=== PATIENT | male | born 1980 | race Hispanic/Latino ===

== ENCOUNTER 2019-04-16 11:32 | Emergency (ER) | payer SELFPAY ==
[2019-04-16 11:44] LABS: Absolute Lymphocytes (CBC) 1.3 K/uL (0.7-4.9); Basophils % 0.2 % (0-1.3); Hematocrit 45.4 % (39.6-49.0); Lymphocytes % 8.5 % (15.3-44.8); MPV 9.4 fL (7.6-11.3); RBC Red Blood Cell Count 5.47 M/uL (4.33-5.43)
--- NOTE | 2019-04-16 11:49 | RAD REPORT ---
EXAM DESCRIPTION: CT - Ct Stroke Brain Wo Cont - 04/16/2019 11:40 am CLINICAL HISTORY: Unresponsive, history of loss of consciousness, history of stroke, possible MS his tory COMPARISON: None. TECHNIQUE: Axial 5 millimeter thick images of the head were obtained without IV contrast. All CT scans are performed using dose optimization technique as appropriate and may include automated exposure control or mA/KV adjustment according to patient size. FINDINGS: No intracranial hemorrhage, mass, or cerebral edema. No acute infarction identifiable. No extra-axial fluid collections. Davey matter-white matter differentiation is preserved. Ventricles are normal. Visualized portions of the mastoid air cells, paranasal sinuses, and orbits are unremarkable. Findings telephoned to the referring clinician 11:44 a.m. IMPRESSION: No CT evidence of acute intracranial process. Ongoing concerns for acute nonhemorrhagic CVA can be addressed with MR imaging.
[2019-04-16 12:03] LABS: BUN Blood Urea Nitrogen 16 mg/dL (7-18); Bicarbonate 26 mmol/L (21-32); Creatine Phosphokinase 49 U/L (39-308); Glucose Level 150 mg/dL (74-106); Lipase 66 U/L (73-393); Magnesium 2.4 mg/dL (1.8-2.4); Potassium 3.8 mmol/L (3.5-5.1); Sodium Level 140 mmol/L (136-145); Troponin (Emerg Dept Use Only) < 0.02 ng/mL (0.0-0.045)
--- NOTE | 2019-04-16 12:13 | RAD REPORT ---
EXAM DESCRIPTION: MRI - Brain Wo Cont - 04/16/2019 12:01 pm CLINICAL HISTORY: TIA Headache, drowsiness COMPARISON: Ct Stroke Brain Wo Cont dated 04/16/2019 TECHNIQUE: Multi-sequence, multiplanar MR imaging of the brain was performed without contrast. FINDINGS: No intracranial hemorrhage, hydrocephalus or extra-axial fluid collections.Areas of T2 and FLAIR hyperintensity are seen in the periventricular white matter, unusual for age. No edema or shif t of midline structures. No findings to suspect brain mass. DWI is negative for acute CVA. Midline structures are normally formed. Mastoid air cells and paranasal sinuses are clear. IMPRESSION: Negative for acute CVA or other acute intracranial abnormality. Areas of mild T2 and FLAIR hyperintensity in the periventricular region are greater than typically se en in this age group. Consider the possibility of underlying demyelinating process or CADASIL.
[2019-04-16] MEDS ORDERED: ASPIRIN 81 MG CHEWABLE TABLET ONE (12:23)
[2019-04-16] MEDS ORDERED: NA CHLORIDE 0.9% 1,000 ML ONE (12:24)
[2019-04-16] MEDS ORDERED: METOCLOPRAMIDE 10 MG/2mL INJ ONE (12:24)
[2019-04-16] MEDS ORDERED: DIPHENHYDRAMINE 50 MG/ML VIAL ONE (12:24)
[2019-04-16] MEDS ORDERED: NA CHLORIDE 0.9% 50 ML IV ONE (12:24)
--- NOTE | 2019-04-16 12:48 | RAD REPORT ---
EXAM DESCRIPTION: RAD - Chest Single View - 04/16/2019 12:38 pm CLINICAL HISTORY: CHEST PAIN Chest pain. COMPARISON: Chest Single View dated 09/21/2018; Chest Pa And Lat (2 Views) dated 03/26/2018; Chest Pa And Lat (2 Views) dated 06/04/2017; Chest Pa And Lat (2 Views) dated 07/04/2016No comparisons FINDINGS: Portable technique limits examination quality. The lungs are grossly clear. The heart is normal in size. No displaced fractures. IMPRESSION: No acute intrathoracic process suspected.
--- NOTE | 2019-04-16 13:33 | EDPHYS ---
Physician Documentation [facility] Name: Panda Woodruff Age: 38 yrs Sex: Male : 1980 Arrival Date: 04/16/2019 Time: 11:32 Bed 3 Private MD: ED Physician Gus Arrington HPI: 04/16 13:25 This 38 yrs old Male presents to ER via Other with complaints of Unresponsive. jr8 13:25 Onset: The symptoms/episode began/occurred acutely, today. Duration: This was a single jr8 incident. Context: the episode(s) was witnessed, by a friend. The symptoms are alleviated by nothing. The symptoms are aggravated by nothing. Associated signs and symptoms: Pertinent positives: dizziness, headache, numbness. Severity of symptoms: At their worst the symptoms were moderate in the emergency department the symptoms have improved mildly. Patient's baseline: Neuro: alert and fully oriented, Motor: no deficits, Ambulation: walks without assistance, Speech: normal. The patient has experienced a previous episode. The patient has not recently seen a physician. Patient stated that he was on a boat fishing. Approximately at 9:30 started to sweat and become nauseated. Stated that he vomited once. Started to have left face and arm numbness. Had syncopal episode. [employer] was called at that time [place] Patient arrived to ED alert and oriented to person, place, time, event . Historical: - Allergies: 11:48 No Known Allergies; ph - Immunization history:: Adult Immunizations unknown. - Ebola Screening: : No symptoms or risks identified at this time. - Social history:: Smoking status: . ROS: 13:25 Eyes: Negative for injury, pain, redness, and discharge, ENT: Negative for injury, jr8 pain, and discharge, Neck: Negative for injury, pain, and swelling, Cardiovascular: Negative for chest pain, palpitations, and edema, Respiratory: Negative for shortness of breath, cough, wheezing, and pleuritic chest pain, Back: Negative for injury and pain, MS/Extremity: Negative for injury and deformity, Skin: Negative for injury, rash, and discoloration. 13:25 Abdomen/GI: Positive for nausea and vomiting, Negative for abdominal pain, diarrhea, constipation, abdominal cramps, abdominal distension. 13:25 Neuro: Positive for dizziness, headache, numbness, syncope, visual changes. Exam: 13:25 Radiologist reports: no acute findings jr8 13:25 Head/Face: Normocephalic, atraumatic. Eyes: Pupils equal round and reactive to light, extra-ocular motions intact. Lids and lashes normal. Conjunctiva and sclera are non-icteric and not injected. Cornea within normal limits. Periorbital areas with no swelling, redness, or edema. ENT: Nares patent. No nasal discharge, no septal abnormalities noted. Tympanic membranes are normal and external auditory canals are clear. Oropharynx with no redness, swelling, or masses, exudates, or evidence of obstruction, uvula midline. Mucous membranes moist. Neck: Trachea midline, no thyromegaly or masses palpated, and no cervical lymphadenopathy. Supple, full range of motion without nuchal rigidity, or vertebral point tenderness. No Meningismus. Cardiovascular: Regular rate and rhythm with a normal S1 and S2. No gallops, murmurs, or rubs. Normal PMI, no JVD. No pulse deficits. Respiratory: Lungs have equal breath sounds bilaterally, clear to auscultation and percussion. No rales, rhonchi or wheezes noted. No increased work of breathing, no retractions or nasal flaring. Abdomen/GI: Soft, non-tender, with normal bowel sounds. No distension or tympany. No guarding or rebound. No evidence of tenderness throughout. Back: No spinal tenderness. No costovertebral tenderness. Full range of motion. Skin: Warm, dry with normal turgor. Normal color with no rashes, no lesions, and no evidence of cellulitis. MS/ Extremity: Pulses equal, no cyanosis. Neurovascular intact. Full, normal range of motion. 13:25 Neuro: Orientation: to person, place, time \T\ situation. Mentation: is normal, Memory: is normal, immediate memory is intact, recent memory is intact, remote memory is intact, Cranial nerves: CN I not tested, CN II- XII are normal as tested, visual alexandre are intact. extraocular movements are intact, Facial palsy and sensory deficits are absent. Nystagmus is absent. Speech is clear and appropriate. Cerebellar function: is grossly normal, Motor: moves all fours, Sensation: numbness, that is mild, of the face and left arm, Gait: not tested. seizure activity, is not displayed by the patient, Abnormal movements: there are no abnormal movements. Vital Signs: 11:35 BP 118 / 88; Pulse 82; Resp 16; Temp 98.6(O); Pulse Ox 100% on R/A; ph 12:25 BP 114 / 80; Pulse 81; Resp 15 S; Pulse Ox 98% on R/A; jl7 13:30 BP 117 / 78; Pulse 81; Resp 16; Temp 97.8; Pulse Ox 99% on R/A; ph NIH Stroke Scale Scores: 11:40 NIHSS Score: 1 ph 13:25 NIHSS Score: 1 jr8 MDM: 11:33 Patient medically screened. jr8 13:25 Data reviewed: vital signs, nurses notes, lab test result(s), EKG, radiologic studies, [facility] CT scan, MRI, plain films. Data interpreted: Pulse oximetry: on room air is 98 %. Interpretation: normal. Counseling: I had a detailed discussion with the patient and/or guardian regarding: the historical points, exam findings, and any diagnostic results supporting the discharge/admit diagnosis, lab results, radiology results, the need for outpatient follow up, a neurologist, to return to the emergency department if symptoms worsen or persist or if there are any questions or concerns that arise at home. ED course: Patient feeling much better. All symptoms have resolved at this time. No acute findings on labs or ECG. MRI shows T2 weighted flares suggestive of demyelinating process. Patient currently being worked up for MS. Has had similar episode today in past. Patient stated that he will f/u with his neurologist. If we were to worsen would come back. Patient safe to go home at this time as symptoms have resolved and he is hemodynamically stable without any other acute findings . 04/16 11:35 Order name: Lipase 04/16 11:35 Order name: CPK 04/16 11:35 Order name: Magnesium; Complete Time: 12:04/16 11:35 Order name: Troponin (emerg Dept Use Only); Complete Time: 12:04/16 11:35 Order name: Basic Metabolic Panel; Complete Time: 12:04/16 11:35 Order name: CBC with Diff; Complete Time: 11:50 04/16 11:35 Order name: Protime (+inr); Complete Time: 12:05 04/16 11:35 Order name: Ptt, Activated; Complete Time: 12:05 04/16 11:35 Order name: CT Stroke Brain w/o Contrast; Complete Time: 11:50 04/16 11:35 Order name: Stroke CXR 1 View; Complete Time: 12:56 04/16 11:35 Order name: MRI - Brain Wo Cont; Complete Time: 12:20 04/16 11:36 Order name: Lipase; Complete Time: 12:05 EDMN 04/16 11:36 Order name: Creatine Phosphokinase; Complete Time: 12:05 [facility] 04/16 11:42 Order name: glucometer results - FOR PT WITH NO ID; Complete Time: 13:24 04/16 11:35 Order name: EKG; Complete Time: 11:36 04/16 11:35 Order name: Accucheck; Complete Time: 11:58 04/16 11:35 Order name: Cardiac monitoring; Complete Time: 11:58 04/16 11:35 Order name: EKG - Nurse/Tech; Complete Time: 12:12 04/16 11:35 Order name: IV Saline Lock; Complete Time: 11:58 04/16 11:35 Order name: Labs collected and sent; Complete Time: 11:58 04/16 11:35 Order name: NPO; Complete Time: 11:58 04/16 11:35 Order name: O2 Per Protocol; Complete Time: 11:58 04/16 11:35 Order name: O2 Sat Monitoring; Complete Time: 11:58 04/16 11:35 Order name: Stroke Swallow Screen; Complete Time: 12:12 04/16 12:41 Order name: Diet Regular; Complete Time: 12:43 ph Administered Medications: 12:30 Drug: NS 0.9% 1000 ml Route: IV; Rate: 1000 ml; Site: right antecubital; ph 13:30 Follow up: Response: No adverse reaction; IV Status: Completed infusion; IV Intake: ph 1000ml 12:31 Drug: Benadryl 25 mg Route: IVP; Site: right antecubital; ph 13:30 Follow up: Response: No adverse reaction; Pain is decreased; Nausea is decreased ph 12:32 Drug: Reglan 10 mg {Note: mixed w/ 50 mL NS.} Route: IVP; Site: right antecubital; ph 13:30 Follow up: Response: No adverse reaction; Pain is decreased; Nausea is decreased ph 12:41 Drug: Aspirin 81 mg Route: PO; ph 13:30 Follow up: Response: No adverse reaction ph Point of Care Testing: Blood Glucose: 11:40 Blood Glucose: 160 mg/dL; iw Ranges: Critical Glucose Levels:Adult <50 mg/dl or >400 mg/dl <40 mg/dl or >180 mg/dl Disposition: 14:56 Co-signature as Attending Physician, Gus Arrington MD I agree with the assessment and kdr plan of care. Disposition: 04/16/19 13:32 Discharged to Home. Impression: Syncope and collapse, Paresthesia of skin, Abnormal findings on diagnostic imaging of central nervous system. - Condition is Stable. - Discharge Instructions: Paresthesia, Syncope. - Medication Reconciliation Form, Thank You Letter, Antibiotic Education, Prescription Opioid Use form. - Follow up: Private Physician; When: 2 - 3 days; Reason: Recheck today's complaints, Continuance of care, Re-evaluation by your physician. - Problem is new. - Symptoms have improved. NIH Stroke Scale - NIH Stroke Score Date: 04/16/2019 Time: 11:40 Total Score = 1 1a. Level of Consciousness (LOC) - 0(Alert) 1b. Level of Consciousness (LOC) (Year \T\ Age) - 0(Both) 1c. LOC Commands (Open \T\ Closes Eyes/Bead Filler) - 0(Both) 2. Best Gaze (Lateral Gaze Paresis) - 0(Normal) 3. Visual Field Loss - 0(No visual loss) 4. Facial Palsy - 0(Normal) 5a. Left Arm: Motor (10-second hold) - 0(No drift) 5b. Right Arm: Motor (10-second hold) - 0(No drift) 6a. Left Leg: Motor (5-second hold - always test supine) - 0(No drift) 6b. Right Leg: Motor (5-second hold - always test supine) - 0(No drift) 7. Limb Ataxia (finger/nose \T\ heel/whitman - test with eyes open) - 0(Absent) 8. Sensory Loss (pinprick arms/legs/face) - 1(Mild to moderate loss) 9. Best Language: Aphasia (description/naming/reading) - 0(No aphasia) 10. Dysarthria (speech clarity - read or repeat words) - 0(Normal) 11. Extinction and Inattention (visual/tactile/auditory/spatial/personal) - 0(No abnormality) Initials: migdalia NIH Stroke Scale - NIH Stroke Score Date: 04/16/2019 Time: 13:25 Total Score = 1 1a. Level of Consciousness (LOC) - 0(Alert) 1b. Level of Consciousness (LOC) (Year \T\ Age) - 0(Both) 1c. LOC Commands (Open \T\ Closes Eyes/Bead Filler) - 0(Both) 2. Best Gaze (Lateral Gaze Paresis) - 0(Normal) 3. Visual Field Loss - 0(No visual loss) 4. Facial Palsy - 0(Normal) 5a. Left Arm: Motor (10-second hold) - 0(No drift) 5b. Right Arm: Motor (10-second hold) - 0(No drift) 6a. Left Leg: Motor (5-second hold - always test supine) - 0(No drift) 6b. Right Leg: Motor (5-second hold - always test supine) - 0(No drift) 7. Limb Ataxia (finger/nose \T\ heel/whitman - test with eyes open) - 0(Absent) 8. Sensory Loss (pinprick arms/legs/face) - 1(Mild to moderate loss) 9. Best Language: Aphasia (description/naming/reading) - 0(No aphasia) 10. Dysarthria (speech clarity - read or repeat words) - 0(Normal) 11. Extinction and Inattention (visual/tactile/auditory/spatial/personal) - 0(No abnormality) Initials: 8 Signatures: Dispatcher [employer] EDMS Gus Arrington MD MD [facility] Jeramie Rosa PA PA jr8 Kyeana Hwang RN RN Sue Caballero RN RN jl7 Corrections: (The following items were deleted from the chart) 14:50 13:32 04/16/2019 13:32 Discharged to Home. Impression: Syncope and collapse; jl7 Paresthesia of skin; Abnormal findings on diagnostic imaging of central nervous system. Condition is Stable. Forms are Medication Reconciliation Form, Thank You Letter, Antibiotic Education, Prescription Opioid Use. Follow up: Private Physician; When: 2 - 3 days; Reason: Recheck today's complaints, Continuance of care, Re-evaluation by your physician. Problem is new. Symptoms have improved. jr8
--- NOTE | 2019-04-16 13:33 | ER ---
[facility] Name: Panda Woodruff Age: 38 yrs Sex: Male : 1980 Arrival Date: 04/16/2019 Time: 11:32 Bed 3 Private MD: Diagnosis: Syncope and collapse;Paresthesia of skin;Abnormal findings on diagnostic imaging of central nervous system Presentation: 04/16 11:35 Acuity: [place] 2 iw 11:44 Presenting complaint: Patient states: [place], became ph dizzy, nauseous, and diaphoretic, vomited x 1 and became unresponsive, arrived at ED via [employer] helicopter, was awake upon arrival to ED, reports feeling weak and "heavy" on L side of body, reports hx of "small stroke". Transition of care: patient was not received from another setting of care. Onset of symptoms was April 16, 2019. Risk Assessment: Do you want to hurt yourself or someone else? Patient reports no desire to harm self or others. Initial Sepsis Screen: Does the patient meet any 2 criteria? No. Patient's initial sepsis screen is negative. Does the patient have a suspected source of infection? No. Patient's initial sepsis screen is negative. Care prior to arrival: None. 11:44 Method Of Arrival: Other Historical: - Allergies: 11:48 No Known Allergies; ph - Immunization history:: Adult Immunizations unknown. - Ebola Screening: : No symptoms or risks identified at this time. - Social history:: Smoking status: . Screenin:50 Abuse screen: Denies threats or abuse. Denies injuries from another. Nutritional ph screening: No deficits noted. Tuberculosis screening: No symptoms or risk factors identified. Fall Risk No fall in past 12 months (0 pts). Secondary diagnosis (15 points) CVA, IV access (20 points). Ambulatory Aid- None/Bed Rest/Nurse Assist (0 pts). Gait- Weak (10 pts.). Mental Status- Oriented to own ability (0 pts). Total Cruz Fall Scale indicates High Risk Score (45 or more points). Fall prevention measures have been instituted. Side Rails Up X 2 Placed Close to Nursing Station Frequent Obs/Assessments Occuring As available patient and family educated on Fall Prevention Program and Strategies. 12:00 The patient has not been NPO before screening. The patient is currently on the jl7 following diet: regular The patient is alert, able to follow commands. The patient does not exhibit slurred or garbled speech The patient is not exhibiting difficulty speaking. The patient does not exhibit difficulty understanding words. The patient is able to swallow own secretions with no drooling or need for suction. Patient tolerated one teaspoon of water. No drooling, immediate coughing, gurgling, or clearing of the throat was noted. The patient tolerated 90mL of water. No drooling, immediate coughing, gurgling, or clearing of the throat was noted. The patient passed the bedside swallow screening. Oral medications may be given as ordered. Contact Physician for further diet orders. Provider notified of bedside swallow screening results: Jeramie FIGUEROA. Assessment: 11:40 General: Appears in no apparent distress. comfortable, well groomed, Behavior is calm, ph cooperative, appropriate for age. Pain: Denies pain. Neuro: Level of Consciousness is awake, alert, obeys commands, Oriented to person, place, time, situation, Bridge Crew Member are equal bilaterally Moves all extremities. Full function Speech is normal, Facial symmetry appears normal, Pupils are PERRLA, Reports dizziness, headache in entire paresthesias in left arm and left leg. Cardiovascular: Capillary refill < 3 seconds in bilateral fingers Patient's skin is warm and dry. Respiratory: Airway is patent Respiratory effort is even, unlabored. GI: Reports nausea, vomiting, Patient currently denies abdominal pain. :. Derm: Skin is intact, Skin is pink, warm \\T\\ dry. Musculoskeletal: Circulation, motion, and sensation intact. Range of motion: intact in all extremities. 11:41 Reassessment: Pt taken to CT accompanied by RN. ph 11:49 Reassessment: While in CT pt reported that he was being evaluated for MS but did ph complete testing. After CT pt taken directly to MRI. 13:00 Reassessment: Patient appears in no apparent distress at this time. Patient and/or ph family updated on plan of care and expected duration. Pain level reassessed. Pt resting comfortably, friend at bedside, VSS. 14:00 Reassessment: Patient appears in no apparent distress at this time. Patient and/or ph family updated on plan of care and expected duration. Pain level reassessed. Patient is alert, oriented x 3, equal unlabored respirations, skin warm/dry/pink. Discharge paperwork signed by pt, awaiting copy of MRI before discharge. Vital Signs: 11:35 BP 118 / 88; Pulse 82; Resp 16; Temp 98.6(O); Pulse Ox 100% on R/A; ph 12:25 BP 114 / 80; Pulse 81; Resp 15 S; Pulse Ox 98% on R/A; jl7 13:30 BP 117 / 78; Pulse 81; Resp 16; Temp 97.8; Pulse Ox 99% on R/A; ph Vitals: 13:30 Cardiac Rhythm Assessment Regular. ph NIH Stroke Scale Scores: 11:40 NIHSS Score: 1 ph 13:25 NIHSS Score: 1 jr8 ED Course: 11:32 Patient arrived in ED. iw 11:33 Jeramie Rosa PA is PHCP. jr8 11:33 Gus Arrington MD is Attending Physician. jr8 11:38 Inserted saline lock: 20 gauge in right antecubital area, using aseptic technique. ph Blood collected. 11:38 Initial lab(s) drawn, by me, sent to lab. jl7 11:39 CT Stroke Brain w/o Contrast In Process Unspecified. EDMS 11:40 Triage completed. iw 11:44 Keyana Hwang, RN is Primary Nurse. ph 11:49 MRI - Brain Wo Cont In Process Unspecified. EDMS 11:50 Arm band placed on Patient placed in an exam room. ph 11:50 Patient has correct armband on for positive identification. Placed in gown. Bed in low ph position. Call light in reach. Side rails up X2. school lunch monitor on. Pulse ox on. NIBP on. 12:00 Warm blanket given. jl7 12:28 X-ray completed. Portable x-ray completed in exam room. Patient tolerated procedure jb2 well. 12:38 Note: DELAY IN CXR DUE TO PT GOING STRAIGHT TO MRI AFTER CT. jb2 12:39 Stroke CXR 1 View In Process Unspecified. EDMS 13:30 No provider procedures requiring assistance completed. IV discontinued, intact, ph bleeding controlled, No redness/swelling at site. Pressure dressing applied. Administered Medications: 12:30 Drug: NS 0.9% 1000 ml Route: IV; Rate: 1000 ml; Site: right antecubital; ph 13:30 Follow up: Response: No adverse reaction; IV Status: Completed infusion; IV Intake: ph 1000ml 12:31 Drug: Benadryl 25 mg Route: IVP; Site: right antecubital; ph 13:30 Follow up: Response: No adverse reaction; Pain is decreased; Nausea is decreased ph 12:32 Drug: Reglan 10 mg {Note: mixed w/ 50 mL NS.} Route: IVP; Site: right antecubital; ph 13:30 Follow up: Response: No adverse reaction; Pain is decreased; Nausea is decreased ph 12:41 Drug: Aspirin 81 mg Route: PO; ph 13:30 Follow up: Response: No adverse reaction ph Point of Care Testing: Blood Glucose: 11:40 Blood Glucose: 160 mg/dL; iw Ranges: Intake: 13:30 IV: 1000ml; Total: 1000ml. ph Outcome: 13:32 Discharge ordered by MD. jr8 14:50 Patient left the ED. jl7 14:50 Discharged to home ambulatory, with friend. ph 14:50 Condition: improved 14:50 Discharge instructions given to patient, Instructed on discharge instructions, follow up and referral plans. Demonstrated understanding of instructions, follow-up care. NIH Stroke Scale - NIH Stroke Score Date: 04/16/2019 Time: 11:40 Total Score = 1 1a. Level of Consciousness (LOC) - 0(Alert) 1b. Level of Consciousness (LOC) (Year \\T\\ Age) - 0(Both) 1c. LOC Commands (Open \\T\\ Closes Eyes/Under Baster) - 0(Both) 2. Best Gaze (Lateral Gaze Paresis) - 0(Normal) 3. Visual Field Loss - 0(No visual loss) 4. Facial Palsy - 0(Normal) 5a. Left Arm: Motor (10-second hold) - 0(No drift) 5b. Right Arm: Motor (10-second hold) - 0(No drift) 6a. Left Leg: Motor (5-second hold - always test supine) - 0(No drift) 6b. Right Leg: Motor (5-second hold - always test supine) - 0(No drift) 7. Limb Ataxia (finger/nose \\T\\ heel/whitman - test with eyes open) - 0(Absent) 8. Sensory Loss (pinprick arms/legs/face) - 1(Mild to moderate loss) 9. Best Language: Aphasia (description/naming/reading) - 0(No aphasia) 10. Dysarthria (speech clarity - read or repeat words) - 0(Normal) 11. Extinction and Inattention (visual/tactile/auditory/spatial/personal) - 0(No abnormality) Initials: ph NIH Stroke Scale - NIH Stroke Score Date: 04/16/2019 Time: 13:25 Total Score = 1 1a. Level of Consciousness (LOC) - 0(Alert) 1b. Level of Consciousness (LOC) (Year \\T\\ Age) - 0(Both) 1c. LOC Commands (Open \\T\\ Closes Eyes/Under Baster) - 0(Both) 2. Best Gaze (Lateral Gaze Paresis) - 0(Normal) 3. Visual Field Loss - 0(No visual loss) 4. Facial Palsy - 0(Normal) 5a. Left Arm: Motor (10-second hold) - 0(No drift) 5b. Right Arm: Motor (10-second hold) - 0(No drift) 6a. Left Leg: Motor (5-second hold - always test supine) - 0(No drift) 6b. Right Leg: Motor (5-second hold - always test supine) - 0(No drift) 7. Limb Ataxia (finger/nose \\T\\ heel/whitman - test with eyes open) - 0(Absent) 8. Sensory Loss (pinprick arms/legs/face) - 1(Mild to moderate loss) 9. Best Language: Aphasia (description/naming/reading) - 0(No aphasia) 10. Dysarthria (speech clarity - read or repeat words) - 0(Normal) 11. Extinction and Inattention (visual/tactile/auditory/spatial/personal) - 0(No abnormality) Initials: jr8 Signatures: Dispatcher [employer] EDME Suhail Moore jb2 Mee Rodarte RN RN iw Jeramie Rosa PA PA jr8 Keyana Hwang RN RN ph Sue Caballero RN RN jl7 Corrections: (The following items were deleted from the chart) 11:51 11:35 BP 118 / 88; Pulse 82bpm; Resp 16bpm; Pulse Ox 100% RA; iw ph 12:05 11:49 Reassessment: After CT pt taken directly to MRI ph ph 19:21 19:21 Response: No adverse reaction; IV Status: Completed infusion; IV Intake: ph 1000ml ph
--- NOTE | 2019-04-16 14:26 | EKG ---
Test Date: 2019-04-16 Test Time: 11:30:09 First [employer] Operator: RAJ MEASUREMENT RESULTS: Intervals: Rate: 84 MO: 150 QRSD: 90 QT: 368 QTc: 434 [place]: P: 53 MO: 150 QRS: 26 T: 45 INTERPRETIVE STATEMENTS: Normal sinus rhythm Normal ECG No previous ECG available for comparison Electronically Signed On 04-16-19 14:25:00 CDT by Ming Pablo
== END 2019-04-16 14:50 | disposition home or self-care (01) ==
LOC: ER 11:32
DX: R90.89 Other abnormal findings on diagnostic imaging of central nervous system (principal); R20.2 Paresthesia of skin
CPT/HCPCS: 36415; 70450; 70551; 71045; 80048; 82550; 82962; 83690; 83735; 84484; 85025; 85610; 85730; 93005; 96361; 96374; 96375; 99284; J2765; J7030